=== PATIENT | female | born 2000 ===

== ENCOUNTER 2021-05-13 05:45 | Emergency (ER) | payer OTHER ==
--- OUTSIDE RECORDS SUMMARY | 2021-05-13 05:50 | XMS REPORT | Continuity of Care Document ---
:2000 Author Organization [facility] t Address [address] [place] [address] Care Team Providers Name Role Phone Pcp, Does Not Have A Primary Care Physician Beryl Hsu Attending Clinician Unavailable Criss Dave Attending Clinician Unavailable Brenda ELLIS Attending Clinician Giancarlo Admitting Clinician Unavailable Beryl Hsu Admitting Clinician Unavailable Payers Payer Name Policy Type Policy Number Effective Date Expiration Date S ource Problems Condition Condition Condition Status Onset Resolution Last Treating Co mments Source Name Details Category Date Date Treatment Clinician Date Gross Gross Disease Active 2019-04 [facility] hematuria hematuria 0-07 ity of 00:00: [place] 00 Medical Branch UTI UTI Disease Active 2019-04 [facility] (urinary (urinary 0-07 ity of tract tract 00:00: [place] infection) infection) 00 Vt dical Branch Allergies, Adverse Reactions, Alerts Allergy Allergy Status Severity Reaction(s) Onset Inactive Treating Comm ents Source Name Type Date Date Clinician keshavatrip DA Active MO 2019-04 [facility] 1-13 Clear 00:00: [place] 00 [facility] DA Active MO LOCK JAW 2019- [facility] 1-13 Clear 00:00: [place] 00 [facility] No Known DA Active U 2020-0 [facility] All[facility] 8-29 Clear s 00:00: [place] 00 [facility] sumatrip DA Active U 2020-0 [facility] 8- Clear 00:00: [place] 00 [facility] No Known DA Active U 2020-0 [facility] Allergie 8-29 Clear s 00:00: [place] 00 [facility] DA Active U LOCKS JAW 2019- [facility] 8- Clear 00:00: [place] 00 [facility] Propensi Active Unknown - 2018-04 Jaw Uni vers [facility] ty to See comments 2 locked ity of adverse 00:00: [place] reaction 00 Medical s Branch No Known DA Active U [facility] Allergie 4- Clear s 00:00: [place] 00 [facility] No Known DA Active U 2014- [facility] Allergie 3-04 Clear s 00:00: [place] 00 [facility] Social History Social Habit Start Date Stop Date Quantity Comments Source Exposure to Not sure [facility] SARS-CoV-2 [place] Medical (event) Branch Alcohol intake 2020-07-07 2020-07-07 Current [facility] 00:00:00 00:00:00 non-drinker of [facility] alcohol Branch (finding) Sex Assigned At [birth year] Universit y of 00:00:00 00:00:00 [facility] Smoking Status Start Date Stop Date Source Never smoker [facility] Medical Branch Medications Ordered Filled Start Stop Current Ordering Indication Dosage Frequency Signature Comments Components Source Medication Medication Date Date Medication? Clinician (SIG) Name Name Yes 1{tbl} Take 1 Unive rs 25/iron 1-18 tablet by ity of fum/folic/d 10:48: mouth [place] her 05 daily. Medical (-1 Branch ORAL) acetaminoph 2019-04 Yes 325mg Take 325 U nivers en 0-08 mg by ity of (TYLENOL) 12:49: mouth [place] 325 mg 29 every 6 Medical tablet (six) Branch hours as needed. magnesium Yes [id number] 400mg Take 1 Univers oxide 400 8-10 capsule by ity of mg 00:00: mouth [place] magnesium 00 daily. Medical capsule Branch acetaminoph 2021- No 2{capsu Take 2 Univers en-caff-but 10-22 le} capsules ity of albital 00:00: 00:00 by mouth Avinash (ESGIC) per 00 :00 every 8 Medic al capsule (eight) Branch hours as needed (migraines ). Immunizations Ordered Immunization Filled Immunization Date Status Commen ts Source Name Name SARS-COV-2 COVID-19 2020-12-25 Completed Unive rsity of PFIZER VACCINE 00:00:00 [facility] Branch SARS-COV-2 COVID-19 2020-12-03 Completed Unive rsity of PFIZER VACCINE 00:00:00 [facility] Branch TDAP 2020-01-18 Completed University of 00:00:00 [facility] Influenza Virus 2019-03-20 Completed Universit y of Vaccine Quad .5 mL IM 00:00:00 Jovany as Medical 6+ [place] Branch TDAP (ADACEL) VACCINE 2011-11-04 Completed Uni versity of 00:00:00 [facility] Meningococcal 2011-11-04 Completed University of Polysaccharide 00:00:00 [facility] (groups A, C, Y and Branc h W-135) conjugate vaccine (MCV4P) Vital Signs Vital Name Observation Time Observation Value Comments Source Systolic blood 2021-05-06 16:47:00 125 mm[Hg] Univer sity of pressure [facility] Diastolic blood 2021-05-06 16:47:00 80 mm[Hg] Unive rsity of pressure [facility] Heart rate 2021-05-06 16:47:00 72 /min [facility] Body temperature 2021-05-06 16:47:00 36.94 Loli [facility] Respiratory rate 2021-05-06 16:47:00 18 /min [facility] Body height 2021-05-06 16:47:00 162.6 cm [facility] Body weight 2021-05-06 16:47:00 74.889 kg [facility] BMI 2021-05-06 16:47:00 28.34 kg/m2 [facility] Procedures Procedure Date / Time Performed Performing Clinician Kirstin ahuja [id number] 2020-03-10 00:00:00 LEBJO [facility] [id number] 2020-03-10 00:00:00 BELLA [facility] Encounters Start End Encounter Admission Attending Care Care Encounter Source Date/Time Date/Time Type Type Clinicians Facility Department ID 2020-03-09 Inpatient Amor [facility] [id number] [facility] 13:42:00 Lul, [id number] [facility] 2020-03-01 Inpatient Tenzin, [facility] JOHN [id number] [facility] 14:55:00 Gia [id number] [facility] 2019-12-16 Inpatient Amor [facility] JOHN [id number] [facility] 21:36:00 Lul [id number] [facility] 2021-05-06 2021-05-06 [facility] [id number] Univers 10:30:00 11:07:13 Visit Tonya WHITTAKER [id number] it y of WOMEN'S [id number] [facility] [id number] [facility] 134 Branch Results Test Description Test Time Test Comments Results Result Comments Source CBC W/AUTO DIFF 2020-03-11 05:23:00 Test Item Value Reference Range Interpretation Comme nts WHITE BLOOD CELL (test code = WBC) 15.5 x10 3/uL 4.5-11.0 H RED BLOOD CELL (test code = RBC) 3.55 x10 6/uL 3.54-5.02 N HEMOGLOBIN (test code = HGB) 10.7 g/dL 11.0-15.0 L HEMATOCRIT (test code = HCT) 32.2 % 33.0-45.0 L MEAN CELL VOLUME (test code = MCV) 90.7 fL 81.0-99.0 N MEAN CELL HGB (test code = MCH) 30.1 pg 27.0-33.0 N MEAN CELL HGB CONCETRATION (test code = MCHC) 33.2 g/dL 33.0-37. 0 N RED CELL DISTRIBUTION WIDTH CV (test code = RDW) 12.5 % 11.5- 14.5 N RED CELL DISTRIBUTION WIDTH SD (test code = RDW-SD) 41.1 fL 37 .0-54.0 N PLATELET COUNT (test code = PLT) 268 x10 3/uL 150-400 N MEAN PLATELET VOLUME (test code = MPV) 10.6 fL 7.0-9.0 H NEUTROPHIL % (test code = NT%) 72.0 % 56.0-77.0 N IMMATURE GRANULOCYTE % (test code = IG%) 0.8 % 0.0-2.0 N LYMPHOCYTE % (test code = LY%) 15.5 % 14.0-32.0 N MONOCYTE % (test code = MO%) 11.1 % 4.8-9.0 H EOSINOPHIL % (test code = EO%) 0.3 % 0.3-3.7 N BASOPHIL % (test code = BA%) 0.3 % 0.0-2.0 N NUCLEATED RBC % (test code = NRBC%) 0.0 % 0-0 N NEUTROPHIL # (test code = NT#) 11.14 x10 3/uL 2.0-7.6 H IMMATURE GRANULOCYTE # (test code = IG#) 0.13 x10 3/uL 0.00-0.03 H LYMPHOCYTE # (test code = LY#) 2.40 x10 3/uL 1.0-3.8 N MONOCYTE # (test code = MO#) 1.71 x10 3/uL 0.1-0.8 H EOSINOPHIL # (test code = EO#) 0.04 x10 3/uL 0.0-0.2 N BASOPHIL # (test code = BA#) 0.04 x10 3/uL 0.0-0.2 N NUCLEATED RBC # (test code = NRBC#) 0.00 x10 3/uL 0.0-0.1 N MANUAL DIFF REQUIRED (test code = MDIFF) NO CBC W/AUTO [id number] 05:22:00 Test Item Value Reference Range Interpretation Comments WHITE BLOOD CELL (test code = x10 3/uL 4.5-11.0 WBC) RED BLOOD CELL (test code = RBC) x10 6/uL 3.54-5.02 HEMOGLOBIN (test code = HGB) g/dL 11.0-15.0 HEMATOCRIT (test code = HCT) % 33.0-45.0 MEAN CELL VOLUME (test code = fL 81.0-99.0 MCV) MEAN CELL HGB (test code = MCH) pg 27.0-33.0 MEAN CELL HGB CONCETRATION (test g/dL 33.0-37.0 code = MCHC) RED CELL DISTRIBUTION WIDTH CV % 11.5-14.5 (test code = RDW) PLATELET COUNT (test code = PLT) 268 x10 3/uL 150-400 N NEUTROPHIL % (test code = NT%) % 56.0-77.0 LYMPHOCYTE % (test code = LY%) % 14.0-32.0 NEUTROPHIL # (test code = NT#) x10 3/uL 2.0-7.6 LYMPHOCYTE # (test code = LY#) x10 3/uL 1.0-3.8 MANUAL DIFF REQUIRED (test code = MDIFF) RAPID PLASMA [id number] 10:22:00 Test Item Value Reference Range Interpretation Comments RAPID PLASMA REAGIN (test code = NONREACTIVE NONREACTIVE RPR) AG HEPATITIS B [id number] 10:22:00 Test Item Value Reference Range Interpretation Comments AG HEPATITIS B SURFACE NON REACTIVE INDEX NonReactive (test code = HBSAG) AB HIV 1 10:22:00 Test Item Value Reference Range Interpretation Comments AB HIV 1 2 (test code = NONREACTIVE INDEX NONREACTIVE [id number]) CORD VENOUS BLOOD [id number] 05:45:00 Test Item Value Reference Range Interpretation Comments CORD VENOUS PH (test code = PHCV) 7.30 7.25-7.45 N CORD VENOUS PCO2 (test code = 38 mmHg 27-49 N PCO2CV) CORD VENOUS PO2 (test code = 22 mmHg 17-41 N PO2CV) CORD VENOUS HCO3 (test code = 19.0 MMOL/L 12-28 N HCO3CV) CORD VENOUS BASE EXCESS (test -7.0 mmol/L -8.0-0.00 N code = BEXCV) CORD VENOUS 02 SAT (test code = 34 % O2SCV) CORD ARTERIAL BLOOD [id number] 05:44:00 Test Item Value Reference Range Interpretation Comments CORD BLOOD PH (test code = PH/C) 7.22 7.18-7.38 N CORD BLOOD PCO2 (test code = 51 mmHg 32-66 N PCO2/C) CORD BLOOD PO2 (test code = 16 mmHg 6-30 N PO2/C) CORD BLOOD HCO3 (test code = 21 mmol/L 17-27 N HCO3/C) BASE EXCESS CORD (test code = -7.0 mmol/L -8.0-0.0 N HAKAN/C) O2 SATURATION (test code = O2S/C) 16 % 72-77 L - US [id number] 03:57:00 [facility] 2000 Sex: F Name: TIFFANIE MILLS [facility] : 2000 Age/S: 19 / F [address] [place] [address] Blvd Unit #: [id number] Loc:[place] [address] Phys: Nancy John MD Acct: [id number] Dis Date: Status: ADM IN PHONE #: [phone] Exam Date: 03/09/2020611 FAX #: [phone] Reason: BEDSIDE MICHELLE Report Has Been Amended EXAMS: CPT CODE: [id number] US PREGNANCYLTD [id number] Addendum - 03/10/2020 SIGNED 03/10/2020 ADDENDUM: [id number] US/USPREGLTD Addendum: Addendum is made only to have crossed the report to the PACS. No change in the report. EXAM: US, US LTD: 03/09/2020, 2253 hours HISTORY: Labile. Bedside MICHELLE COMPARISON: None TECHNIQUE: Transabdominal sonographic evaluation isperformed using grayscale, color flow and Doppler imaging when appropriate. FINDINGS: The examination shows a single fetus in cephalic presentation. Normal cardiac activity is noted at 122 per second. The amount of amniotic fluid is subjectivelynormal. Amniotic fluid index is 13.16 cm with largest pocket measuring 4.58. Gestational age by LMP is 34 weeks 6 days Cervical length is not visualized. If indicated, follow-up ultrasound can be performed for complete assessment. IMPRESSION: Single live fetus in cephalic presentation. QAMAR: KATE PAGE 1 Signed Report (CONTINUED) Name: TIFFANIE MILLS : 2000 Age/S: / [address] [place] [address] Unit #: [id number] Loc: [place] [address] Phys: Nancy John MD Acct: [id number] Dis Date: Status: ADM IN PHONE #: [phone] Exam Date: 03/09/2020 0612 FAX #: [phone] Reason: BEDSIDE MICHELLE Report Has Been Amended EXAMS: CPT CODE: [id number] Seculert LTD 47786 <Continued> at 0357 Reported and signed by: Giancarlo Jo M.D. Report EXAM: , Fix That Bug LTD: 03/09/2020, 2253 hours HISTORY: Labile. Bedside MICHELLE COMPARISON: None TECHNIQUE: Transabdominal sonographic evaluation is performed using grayscale, color flow andDoppler imaging when appropriate. FINDINGS: The examination shows a single fetus in cephalic presentation. Normal cardiac activity is noted at 122 per second. The amount of amniotic fluid is subjectively normal. Amniotic fluid index is 13.16 cm with largest pocket measuring 4.58. Gestational age by LMP is 34 weeks 6 days Cervical length is not visualized. If indicated, follow-up ultrasound can be performed for complete assessment. IMPRESSION: Single live fetusin cephalic presentation. SL: KATE PAGE 2 Signed Report (CONTINUED) Name: TIFFANIE MILLS : 2000 Age/S: / [address] [place] [address] Unit #: [id number] Loc: [place] [address] Phys: Nancy John Acct: [id number] Dis Date: Status: ADM IN PHONE #: [phone] Exam Date: 03/09/2020 0612 FAX #: [phone] Reason: BEDSIDE MICHELLE Report Has Been Amended EXAMS: CPT CODE: [id number] US LTD 83340 <Continued> at 2317 Reported and signed by: Giancarlo Jo M.D. CC: Jeniffer Mondragon MD; Nancy John Technologist: Leslie Krueger RDMS(BR)(AB) Trnscb Date/Time: 03/09/2020 (2316) [email or web address] Orig Print D/T: S: 03/10/2020 (06) Probe: PAGE 3 Signed Report- US LTD 2020-03-10 03:57:00 [facility] 2000 Sex: F Name: TIFFANIE MILLS [facility] : 2000 Age/S: 19 / F [address] [place] [address] Unit #: [id number] Loc:[place] [address] Phys: Nancy John MD Acct: [id number] Dis Date: Status: ADM IN PHONE #: [phone] Exam Date: 03/09/2020611 FAX #: [phone] Reason: BEDSIDE MICHELLE Report Has Been Amended EXAMS: CPT CODE: [id number] US PREGNANCYLTD 61804 Addendum - 03/10/2020 SIGNED 03/10/2020 ADDENDUM: [id number] US/USPREGLTD Addendum: Addendum is made only to have crossed the report to the PACS. No change in the report. EXAM: US, US LTD: 03/09/2020, 2253 hours HISTORY: Labile. Bedside MICHELLE COMPARISON: None TECHNIQUE: Transabdominal sonographic evaluation isperformed using grayscale, color flow and Doppler imaging when appropriate. FINDINGS: The examination shows a single fetus in cephalic presentation. Normal cardiac activity is noted at 122 per second. The amount of amniotic fluid is subjectivelynormal. Amniotic fluid index is 13.16 cm with largest pocket measuring 4.58. Gestational age by LMP is 34 weeks 6 days Cervical length is not visualized. If indicated, follow-up ultrasound can be performed for complete assessment. IMPRESSION: Single live fetus in cephalic presentation. SL: KATE PAGE 1 Signed Report (CONTINUED) Name: TIFFANIE MILLS : 2000 Age/S: [address] [place] [address] Unit #: [id number] Loc: [place] [address] Phys: Nancy John MD Acct: [id number] Dis Date: Status: ADM IN PHONE #: [phone] Exam Date: 03/09/2020611 FAX #: [phone] Reason: BEDSIDE MICHELLE Report Has Been Amended EXAMS: CPT CODE: [id number] US LTD 37777 <Continued> at 0357 Reported and signed by: Giancarlo Jo M.D. Report EXAM: , LTD: 03/09/2020, 2253 hours HISTORY: Labile. Bedside MICHELLE COMPARISON: None TECHNIQUE: Transabdominal sonographic evaluation is performed using grayscale, color flow andDoppler imaging when appropriate. FINDINGS: The examination shows a single fetus in cephalic presentation. Normal cardiac activity is noted at 122 per second. The amount of amniotic fluid is subjectively normal. Amniotic fluid index is 13.16 cm with largest pocket measuring 4.58. Gestational age by LMP is 34 weeks 6 days Cervical length is not visualized. If indicated, follow-up ultrasound can be performed for complete assessment. IMPRESSION: Single live fetusin cephalic presentation. SL: KATE PAGE 2 Signed Report (CONTINUED) Name: TIFFANIE MILLS : 2000 Age/S: [address] [place] [address] Unit #: [id number] Loc: [place] [address] Phys: Nancy JohnMD Acct: [id number] Dis Date: Status: ADM IN PHONE #: [phone] Exam Date: 03/09/2020611 FAX #: [phone] Reason: BEDSIDE MICHELLE Report Has Been Amended EXAMS: CPT CODE: [id number] LTD 39515 <Continued> at 2317 Reported and signed by: Giancarlo Jo M.D. 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 [facility] RAPID PLASMA [id number] 16:49:00 Test Item Value Reference Range Interpretation Comments RAPID PLASMA REAGIN (test code = RPR) NONREACTIVE AG HEPATITIS B [id number] 16:49:00 Test Item Value Reference Range Interpretation Comments AG HEPATITIS B SURFACE NON REACTIVE INDEX NonReactive (test code = HBSAG) AB HIV 1 16:49:00 Test Item Value Reference Range Interpretation Comments AB HIV 1 2 (test code = NONREACTIVE INDEX NONREACTIVE [id number]) COVID 19 Asymptomatic IH [id number] 15:36:00 Test Item Value Reference Range Interpretation Comments COVID 19 Asymptomatic Negative Negative A nega tive result is IH AG (test code = presumpti ve and should COVNONPUIAG) be confirmedwit h an FDA authorized mole cular assay, if neces marino forpatient avani gement.A positive result does not rule out co-inf ections withother patho gens.This test detects winifred th viable (live) and non-viable,SARS -CoV, and SARS-CoV-2. Saúl t performance dep ends on theamount of vi amy (antigen) in th e sample.This saúl t has not been FDA cleare d or approved; the t est hasbeen authori zed by FDA under an Em ergency Use Authorizati on(EUA) for use by labo ratories certified under the CLIA thatmeet the requirements to perform moderate, high or waivedcomplexit y tests. COMMENTS: If not done [facility] W/AUTO [id number] 15:31:00 Test Item Value Reference Range Interpretation Comments WHITE BLOOD CELL (test code = 11.6 x10 3/uL 4.5-11.0 H WBC) RED BLOOD CELL (test code = 4.32 x10 6/uL 3.54-5.02 N RBC) HEMOGLOBIN (test code = HGB) 12.7 g/dL 11.0-15.0 N HEMATOCRIT (test code = HCT) 38.7 % 33.0-45.0 N MEAN CELL VOLUME (test code = 89.6 fL 81.0-99.0 N MCV) MEAN CELL HGB (test code = MCH) 29.4 pg 27.0-33.0 N MEAN CELL HGB CONCETRATION 32.8 g/dL 33.0-37.0 L (test code = MCHC) RED CELL DISTRIBUTION WIDTH CV 12.1 % 11.5-14.5 N (test code = RDW) RED CELL DISTRIBUTION WIDTH SD 39.6 fL 37.0-54.0 N (test code = RDW-SD) PLATELET COUNT (test code = 329 x10 3/uL 150-400 N PLT) MEAN PLATELET VOLUME (test code 11.2 fL 7.0-9.0 H = MPV) NEUTROPHIL % (test code = NT%) 70.2 % 56.0-77.0 N IMMATURE GRANULOCYTE % (test 0.4 % 0.0-2.0 N code = IG%) LYMPHOCYTE % (test code = LY%) 20.3 % 14.0-32.0 N MONOCYTE % (test code = MO%) 8.3 % 4.8-9.0 N EOSINOPHIL % (test code = EO%) 0.5 % 0.3-3.7 N BASOPHIL % (test code = BA%) 0.3 % 0.0-2.0 N NUCLEATED RBC % (test code = 0.0 % 0-0 N NRBC%) NEUTROPHIL # (test code = NT#) 8.13 x10 3/uL 2.0-7.6 H IMMATURE GRANULOCYTE # (test 0.05 x10 3/uL 0.00-0.03 H code = IG#) LYMPHOCYTE # (test code = LY#) 2.35 x10 3/uL 1.0-3.8 N MONOCYTE # (test code = MO#) 0.96 x10 3/uL 0.1-0.8 H EOSINOPHIL # (test code = EO#) 0.06 x10 3/uL 0.0-0.2 N BASOPHIL # (test code = BA#) 0.04 x10 3/uL 0.0-0.2 N NUCLEATED RBC # (test code = 0.00 x10 3/uL 0.0-0.1 N NRBC#) MANUAL DIFF REQUIRED (test code NO = MDIFF) CBC W/AUTO [id number] 15:27:00 Test Item Value Reference Range Interpretation Comments WHITE BLOOD CELL (test code = x10 3/uL 4.5-11.0 WBC) RED BLOOD CELL (test code = RBC) x10 6/uL 3.54-5.02 HEMOGLOBIN (test code = HGB) 12.7 g/dL 11.0-15.0 N HEMATOCRIT (test code = HCT) 38.7 % 33.0-45.0 N MEAN CELL VOLUME (test code = fL 81.0-99.0 MCV) MEAN CELL HGB (test code = MCH) pg 27.0-33.0 MEAN CELL HGB CONCETRATION (test g/dL 33.0-37.0 code = MCHC) RED CELL DISTRIBUTION WIDTH CV % 11.5-14.5 (test code = RDW) PLATELET COUNT (test code = PLT) 329 x10 3/uL 150-400 N NEUTROPHIL % (test code = NT%) % 56.0-77.0 LYMPHOCYTE % (test code = LY%) % 14.0-32.0 NEUTROPHIL # (test code = NT#) x10 3/uL 2.0-7.6 LYMPHOCYTE # (test code = LY#) x10 3/uL 1.0-3.8 MANUAL DIFF REQUIRED (test code = MDIFF) AMNISURE (ROM) [id number] 14:35:00 Test Item Value Reference Range Interpretation Comments AMNISURE (ROM) TEST (test POSITIVE NEGATIVE A OP ENED:02/04/2020 code = AMNI) [id number] 17:29:00 Test Item Value Reference Range Interpretation Comments FIBRONECTIN (test code = FFN) POSITIVE NEGATIVE A URINALYSIS [id number] 17:11:00 Test Item Value Reference Range Interpretation Comments UA COLOR (test code = COLU) YELLOW YEL/STRAW UA APPEARANCE (test code = SL CLOUDY CLEAR APPU) UA GLUCOSE DIPSTICK (test code NEGATIVE NEGATIVE = DGLUU) UA BILIRUBIN DIPSTICK (test NEGATIVE NEGATIVE code = BILU) UA KETONE DIPSTICK (test code = 2+ NEGATIVE A KETU) UA SPECIFIC GRAVITY (test code 1.021 1.005-1.030 N = SGU) UA BLOOD DIPSTICK (test code = NEGATIVE NEGATIVE KRZYSZTOF) UA PH DIPSTICK (test code = 5.0 5.0-7.0 N EZENAT) UA PROTEIN DIPSTICK (test code NEGATIVE NEGATIVE = PROU) UA UROBILINIOGEN DIPSTICK (test 0.2 mg/dL 0.2-1.0 code = URO) UA NITRITE DIPSTICK (test code NEGATIVE NEGATIVE = JON) UA LEUKOCYTE ESTERASE DIPSTICK TRACE NEGATIVE A (test code = LEUU) UA RBC (test code = RBCU) 21-50 RBC/HPF 0-3 UA WBC NO REFLEX (test code = 10-20 WBC/HPF 0-3 A WBCUCL) UA BACTERIA (test code = BACU) TRACE /HPF NONE SEEN UA SQUAMOUS CELLS (test code = 11-25 /HPF NONE SEEN A SQU) UA MUCUS (test code = MUCU) 2+ /LPF NONE SEEN A BASIC METABOLIC [id number] 00:38:00 Test Item Value Reference Range Interpretation Comments SODIUM (test code = NA) 140 mEq/L 134-147 N POTASSIUM (test code = 3.9 mEq/L 3.4-5.0 N K) CHLORIDE (test code = 110 mEq/L 100-108 H CL) CARBON DIOXIDE (test 24 mEq/L 21-33 N code = CO2) ANION GAP (test code = 10 0-20 N GAP) GLUCOSE (test code = 83 mg/dL 70-110 N GLU) BLOOD UREA NITROGEN 13 mg/dL 7-18 N (test code = BUN) GLOMERULAR FILTRATION 107.8 110-120 L Units of measure = RATE (test code = GFR) ml/mi n/1.73 m2 CREATININE (test code = 0.7 mg/dL 0.6-1.3 N CREAT) CALCIUM (test code = 8.4 mg/dL 8.0-10.5 N CA) Is patient ? YHOW MANY WEEKS? 8 WEEKSHCG [id number] 00:38:00 Test Item Value Reference Range Interpretation Comments HCG SERUM (test 2044 0 - 6 code = HCG) NOT > 6 SUG GESTIVE OF EARLY RISES TWO FOLD EVERY 2 DAYS; KINSEY GGEST RECONFIRMING AF TER 2 DAYS. 150,000-20 0,[address] TRIMESTER 10,000 - 50,000 2ND & 3RD TRIMESTERResult s in bacilio-Internati onal Units/mL Is patient ? YHOW MANY WEEKS? 8 WEEKSBASIC METABOLIC [id number] 00:21:00 Test Item Value Reference Range Interpretation Comments SODIUM (test code = NA) 140 mEq/L 134-147 N POTASSIUM (test code = 3.9 mEq/L 3.4-5.0 N K) CHLORIDE (test code = 110 mEq/L 100-108 H CL) CARBON DIOXIDE (test 24 mEq/L 21-33 N code = CO2) ANION GAP (test code = 10 0-20 N GAP) GLUCOSE (test code = 83 mg/dL 70-110 N GLU) BLOOD UREA NITROGEN 13 mg/dL 7-18 N (test code = BUN) GLOMERULAR FILTRATION 107.8 110-120 L Units of measure = RATE (test code = GFR) ml/mi n/1.73 m2 CREATININE (test code = 0.7 mg/dL 0.6-1.3 N CREAT) CALCIUM (test code = 8.4 mg/dL 8.0-10.5 N CA) Is patient ? YHOW MANY WEEKS? 8 WEEKSHCG [id number] 00:21:00 Test Item Value Reference Range Interpretation Comments HCG SERUM (test code = HCG) Is patient ? YHOW MANY WEEKS? 8 WEEKSURINALYSIS [id number] 00:11:00 Test Item Value Reference Range Interpretation Comments UA COLOR (test code = COLU) YELLOW YEL/STRAW UA APPEARANCE (test code = SL CLOUDY CLEAR APPU) UA GLUCOSE DIPSTICK (test code NEGATIVE NEGATIVE = DGLUU) UA BILIRUBIN DIPSTICK (test NEGATIVE NEGATIVE code = BILU) UA KETONE DIPSTICK (test code NEGATIVE NEGATIVE = KETU) UA SPECIFIC GRAVITY (test code 1.015 1.005-1.030 N = SGU) UA BLOOD DIPSTICK (test code = 3+ NEGATIVE A KRZYSZTOF) UA PH DIPSTICK (test code = 5.0 5.0-7.0 N ZEENAT) UA PROTEIN DIPSTICK (test code NEGATIVE NEGATIVE = PROU) UA UROBILINIOGEN DIPSTICK 0.2 mg/dL 0.2-1.0 (test code = URO) UA NITRITE DIPSTICK (test code NEGATIVE NEGATIVE = JON) UA LEUKOCYTE ESTERASE DIPSTICK NEGATIVE NEGATIVE (test code = LEUU) UA WBC (test code = WBCU) 0-3 WBC/HPF 0-3 UA RBC (test code = RBCU) >50 RBC/HPF 0-3 A UA BACTERIA (test code = BACU) NONE SEEN /HPF NONE SEEN UA SQUAMOUS CELLS (test code = 0-5 /HPF NONE SEEN SQU) UA MUCUS (test code = MUCU) TRACE /LPF NONE SEEN CBC W/AUTO [id number] 00:10:00 Test Item Value Reference Range Interpretation Comments WHITE BLOOD CELL (test code = 9.23 x10 3/uL 4.5-11.0 N WBC) RED BLOOD CELL (test code = 4.48 x10 6/uL 3.54-5.02 N RBC) HEMOGLOBIN (test code = HGB) 13.2 g/dL 11.0-15.0 N HEMATOCRIT (test code = HCT) 38.8 % 33.0-45.0 N MEAN CELL VOLUME (test code = 86.6 fL 81.0-99.0 N MCV) MEAN CELL HGB (test code = MCH) 29.5 pg 27.0-33.0 N MEAN CELL HGB CONCETRATION 34.0 g/dL 33.0-37.0 N (test code = MCHC) RED CELL DISTRIBUTION WIDTH CV 12.1 % 11.5-14.5 N (test code = RDW) RED CELL DISTRIBUTION WIDTH SD 39.1 fL 37.0-54.0 N (test code = RDW-SD) PLATELET COUNT (test code = 314 x10 3/uL 150-400 N PLT) MEAN PLATELET VOLUME (test code 10.2 fL 7.0-9.0 H = MPV) NEUTROPHIL % (test code = NT%) 52.9 % 56.0-77.0 L IMMATURE GRANULOCYTE % (test 0.2 % 0.0-2.0 N code = IG%) LYMPHOCYTE % (test code = LY%) 33.7 % 14.0-32.0 H MONOCYTE % (test code = MO%) 11.3 % 4.8-9.0 H EOSINOPHIL % (test code = EO%) 1.5 % 0.3-3.7 N BASOPHIL % (test code = BA%) 0.4 % 0.0-2.0 N NUCLEATED RBC % (test code = 0.0 % 0-0 N NRBC%) NEUTROPHIL # (test code = NT#) 4.88 x10 3/uL 2.0-7.6 N IMMATURE GRANULOCYTE # (test 0.02 x10 3/uL 0.00-0.03 N code = IG#) LYMPHOCYTE # (test code = LY#) 3.11 x10 3/uL 1.0-3.8 N MONOCYTE # (test code = MO#) 1.04 x10 3/uL 0.1-0.8 H EOSINOPHIL # (test code = EO#) 0.14 x10 3/uL 0.0-0.2 N BASOPHIL # (test code = BA#) 0.04 x10 3/uL 0.0-0.2 N NUCLEATED RBC # (test code = 0.00 x10 3/uL 0.0-0.1 N NRBC#) MANUAL DIFF REQUIRED (test code NO = MDIFF) CHEMISTRY 8 [id number] 23:57:00 Test Item Value Reference Range Interpretation Comments ISTAT-SODIUM (test code = NAP) MMOL/L 134-147 ISTAT-POTASSIUM (test code = KP) MMOL/L 3.4-5.0 ISTAT-CHLORIDE (test code = CLP) MMOL/L 100-108 ISTAT CARBON DIOXIDE (test code = mmol/L 21-33 N ISTAT-CO2) ISTAT CALCIUM IONIZED (test code = MG/DL 1.12-1.32 ISTAT-ZINA) ISTAT-GLUCOSE (test code = GLUP) MG/DL 70-110 N ISTAT-BUN (test code = BUNP) MG/DL 7-18 N BEDSIDE CREATININE (test code = MG/DL 0.6-1.3 N CREATBED) GLOMERULAR FILTRATION RATE POC 137 ML/MIN (test code = GFRBED) CHEMISTRY 8 [id number] 23:57:00 Test Item Value Reference Range Interpretation Comments ISTAT-SODIUM (test 142 MMOL/L 134-147 N code = NAP) ISTAT-POTASSIUM (test 3.9 MMOL/L 3.4-5.0 N code = KP) ISTAT-CHLORIDE (test 104 MMOL/L 100-108 N Perform ed by code = CLP) certified opera tor at [facility] ISTAT CARBON DIOXIDE 25.0 mmol/L 21-33 N (test code = ISTAT-CO2) ISTAT CALCIUM IONIZED 1.19 MG/DL 1.12-1.32 N (test code = ISTAT-ZINA) ISTAT-GLUCOSE (test 86 MG/DL 70-110 N code = GLUP) ISTAT-BUN (test code = 12 MG/DL 7-18 N BUNP) BEDSIDE CREATININE 0.6 MG/DL 0.6-1.3 N (test code = CREATBED) GLOMERULAR FILTRATION 137 ML/MIN RATE POC (test code = GFRBED) - US PREG UT [id number] 23:15:00 Name: TIFFANIE MILLS [facility] : 2000 Age/S: 17 / F [address] [place] [address] Unit #: [id number] Loc: [id number] Phys: Liang Monreal NP Acct: [id number] Dis Date: Status: REG ER PHONE #: [phone] Exam Date: 07/19/2018 2303 FAX #: [phone] Reason: SPOTTING EXAMS: CPTCODE: [id number] US PREG UT TRANSVAGINAL 23139 Procedure: Pelvic Ultrasound. Clinical Indication: , vaginal spotting, pelvic cramping. Comparison: None. PROCEDURE: PELVIC ULTRASOUND TRANSABDOMINAL SCAN: The uterus measures 7.4 x 3.8 x 4.9 cm. The visualized bladder and adnexa are maintained. TRANSVAGINAL SCAN: An endovaginal ultrasound was performed to try to better visualize the endometrial stripe and adnexal regions. There is a low-lying gestational sac within the endometrial cavity. There is an intrauterine with crown-rump length equaling 3mm consistent with a gestational age of 5 weeks 6 days however no cardiac activityis identified. A small subchorionic hemorrhage is noted posteriorly. The right ovary measures 2.6 x 2.4 x 2.7 cm and demonstrates small follicles and blood flow. The left ovary was not seen. IMPRESSION: 1. Findings consistent with early 5 week 6 day intrauterine , the viability of which cannot be stated for certainty at this time and short-term imaging follow-up is recommended, if indicated clinically. 2. Small posterior subchorionic hemorrhage. 3. Nonvisualization of the left ovary SL: K56-H at 2315 Reported and signed by: Avinash Bettencourt M.D. CC: Liang Monreal NP Technologist: Tayla Ledezma RDMS(Beryl)(OB) Trnscb Date/Time: 07/19/2018 (2314) tJESENIATDOOrig Print D/T: S: 07/19/2018 (2316) Probe: [id number] PAGE 1 Signed Report- US PREG 1ST [id number] 23:15:00 Name: TIFFANIE MILLS [facility] : 2000 Age/S: 17 / F [address] [place] [address] Unit #: [id number] Loc: [id number] Phys: Liang Monreal NP Acct: [id number] Dis Date: Status: REG ER PHONE #: [phone] Exam Date: 07/19/20182302 FAX #: [phone] Reason: , LMP 2/4, vaginal bleeding, IUP on US on S EXAMS: CPTCODE: [id number] US PREG 1ST TRIMTR 19301 Procedure: Pelvic Ultrasound. Clinical Indication: , vaginal spotting, pelvic cramping. Comparison: None. PROCEDURE: PELVIC ULTRASOUND TRANSABDOMINAL SCAN: The uterus measures 7.4 x 3.8 x 4.9 cm. The visualized bladder and adnexa are maintained. TRANSVAGINAL SCAN: An endovaginal ultrasound was performed to try to better visualize the endometrial stripe and adnexal regions. There is a low-lying gestational sac within the endometrial cavity. There is an intrauterine with crown-rump length equaling 3mm consistent with a gestational age of 5 weeks 6 days however no cardiac activityis identified. A small subchorionic hemorrhage is noted posteriorly. The right ovary measures 2.6 x 2.4 x 2.7 cm and demonstrates small follicles and blood flow. The left ovary was not seen. IMPRESSION: 1. Findings consistent with early 5 week 6 day intrauterine , the viability of which cannot be stated for certainty at this time and short-term imaging follow-up is recommended, if indicated clinically. 2. Small posterior subchorionic hemorrhage. 3. Nonvisualization of the left ovary SL: K56-H at 2315 Reported and signed by: Avinash Bettencourt M.D. CC: Liang Monreal NP Technologist: Tayla Ledezma RDMS(Beryl)(OB) Trnscb Date/Time: 07/19/2018 (8977) JasminTDOOrig Print D/T: S: 07/19/2018 (8963) Probe: PAGE 1 Signed Report
[2021-05-13] MEDS ORDERED: IBUPROFEN 200 MG TAB PO ONE (06:09)
[2021-05-13] MEDS ORDERED: IBUPROFEN 400 MG TAB ONE (06:09)
[2021-05-13] MEDS ORDERED: AZITHROMYCIN 250 MG TAB ONE (06:23)
[2021-05-13 07:36] LABS: SARS-COV-2 RT PCR POSITIVE (NEGATIVE)
--- NOTE | 2021-05-13 07:42 | ER ---
Nurse's Notes [facility] Name: Indira Quach Age: 20 yrs Sex: Female : 2000 Arrival Date: 05/13/2021 Time: 05:49 Bed 19 Private MD: Diagnosis: SARS-associated coronavirus as the cause of diseases classified elsewhere Presentation: 05/13 05:53 Chief complaint: Patient states: "I feel extremely hot and I feel like someone is tw5 pumping air into my head. It started off as a sore throat. Last night I was shivering and now I just feel so hot.:. Coronavirus screen: Vaccine status: Patient reports receiving the 2nd dose of the covid vaccine. Logly. Ebola Screen: Patient negative for fever greater than or equal to 101.5 degrees Fahrenheit, and additional compatible Ebola Virus Disease symptoms Patient denies exposure to infectious person. Patient denies travel to an Ebola-affected area in the 21 days before illness onset. Initial Sepsis Screen: Does the patient meet any 2 criteria? No. Patient's initial sepsis screen is negative. Does the patient have a suspected source of infection? No. Patient's initial sepsis screen is negative. Risk Assessment: Do you want to hurt yourself or someone else? Patient reports no desire to harm self or others. Onset of symptoms was May 12, 2021. 05:53 Method Of Arrival: Ambulatory tw5 05:53 Acuity: RADHA 3 tw5 Triage Assessment: 05:54 General: Appears in no apparent distress. Behavior is calm, cooperative, appropriate tw5 for age. Pain: Complains of pain in " Throat and head" Pain currently is 5 out of 10 on a pain scale. EENT: Throat with gag reflex present. 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 - Social history:: Smoking status: Patient denies any tobacco usage or history of. - Family history:: not pertinent. Screenin:26 Abuse screen: Denies threats or abuse. Denies injuries from another. Nutritional as6 screening: No deficits noted. Tuberculosis screening: No symptoms or risk factors identified. Fall Risk None identified. Assessment: 06:24 General: Appears in no apparent distress. Behavior is calm, cooperative. General: as6 Reports chills for fever for feeling ill for fatigue for. Pain: Complains of pain in throat and headache. Neuro: Level of Consciousness is awake, alert, obeys commands, Oriented to person, place, time, situation, Reports headache. Cardiovascular: Capillary refill < 3 seconds Patient's skin is warm and dry. Respiratory: Airway is patent Trachea midline Respiratory effort is even, unlabored, Respiratory pattern is regular, symmetrical. EENT: Reports sore throat . 07:04 General: Appears in no apparent distress. comfortable, Behavior is calm, cooperative, jd3 appropriate for age. Pain: Complains of pain in head and throat Quality of pain is described as aching. Neuro: Level of Consciousness is awake, alert, obeys commands, Oriented to person, place, time, situation. Cardiovascular: Capillary refill < 3 seconds Patient's skin is warm and dry. Respiratory: Airway is patent Respiratory effort is even, unlabored, Respiratory pattern is regular, symmetrical. Derm: Skin is intact, Skin is dry, Skin is normal, Skin temperature is warm. 07:51 Reassessment: Patient appears in no apparent distress at this time. No changes from jd3 previously documented assessment. Patient and/or family updated on plan of care and expected duration. Pain level reassessed. Patient is alert, oriented x 3, equal unlabored respirations, skin warm/dry/pink. Vital Signs: 05:53 BP 130 / 66; Pulse 98; Resp 18; Temp 98.5(O); Pulse Ox 99% on R/A; Weight 74.84 kg; tw5 Height 5 ft. 3 in. (160.02 cm); Pain 5/10; 06:27 BP 127 / 90; Pulse 95; Resp 18 S; Pulse Ox 100% on R/A; as6 07:08 BP 109 / 64; Pulse 85; Resp 18 S; Pulse Ox 98% on R/A; jd3 05:53 Body Mass Index 29.23 (74.84 kg, 160.02 cm) tw5 ED Course: 05:49 Patient arrived in ED. 05:50 Antione Mosquera MD is Attending Physician. [facility] 05:54 Triage completed. tw5 05:54 Arm band placed on right wrist. tw 05:58 Estrada Magana, [place] is Primary Nurse. as6 06:26 Placed in gown. Bed in low position. Call light in reach. Side rails up X 1. Pulse ox as6 on. NIBP on. Warm blanket given. PO fluids given. 06:26 COVID-19/FLU A+B/RSV (Document "Date of Onset" if Symptomatic) Sent. as6 06:26 Strep Sent. as6 06:59 Antione Vines PA is PHCP. cp 07:04 Primary Nurse role handed off by Estrada Magana, [place] carey 07:04 Dima France, [place] is Primary Nurse. jd3 07:50 No provider procedures requiring assistance completed. Patient did not have IV access jd3 during this emergency room visit. Administered Medications: 06:18 Drug: Motrin (ibuprofen) 600 mg Route: PO; as6 06:26 Follow up: Response: No adverse reaction as6 06:24 Drug: Zithromax (azithromycin) 500 mg Route: PO; as6 06:26 Follow up: Response: No adverse reaction as6 Outcome: 07:41 Discharge ordered by . cp 07:50 Discharged to home ambulatory. jd3 07:50 Condition: stable 07:50 Discharge instructions given to patient, Instructed on discharge instructions, follow up and referral plans. medication usage, Demonstrated understanding of instructions, follow-up care, medications, Prescriptions given X 3. 07:51 Patient left the ED. jd3 Signatures: Antione Mosquera MD MD cha Page, Corey, PA PA cp Davies, Jonathon, RN RN jRadha Matias Tiffany Estrada Magana RN RN as6 Corrections: (The following items were deleted from the chart) 05:55 05:54 Allergies: No Known Allergies; 05:58 05:53 Acuity: RADHA 4
--- NOTE | 2021-05-13 07:42 | EDPHYS ---
Physician Documentation [facility] Name: Indira Quach Age: 20 yrs Sex: Female : 2000 Arrival Date: 05/13/2021 Time: 05:49 Bed 19 Private MD: FAVIO Physician Antione Mosquera HPI: 05/13 06:12 This 20 yrs old Female presents to ER via Ambulatory with complaints of Sore pam Throat, Fever, Palpitations. 06:12 The patient presents with sore throat. The patient describes throat pain as burning. pam Onset: The symptoms/episode began/occurred 2 day(s) ago. Severity of symptoms: At their worst the symptoms were moderate. Modifying factors: The symptoms are alleviated by nothing, the symptoms are aggravated by nothing. Associated signs and symptoms: The patient has no apparent associated signs or symptoms. The patient has not experienced similar symptoms in the past. 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 - Social history:: Smoking status: Patient denies any tobacco usage or history of. - Family history:: not pertinent. ROS: 06:12 Eyes: Negative for injury, pain, redness, and discharge, Neck: Negative for injury, pam pain, and swelling, Cardiovascular: Negative for chest pain, palpitations, and edema, Respiratory: Negative for shortness of breath, cough, wheezing, and pleuritic chest pain, Abdomen/GI: Negative for abdominal pain, nausea, vomiting, diarrhea, and constipation, Back: Negative for injury and pain, : Negative for injury, bleeding, discharge, and swelling, MS/Extremity: Negative for injury and deformity, Skin: Negative for injury, rash, and discoloration, Neuro: Negative for headache, weakness, numbness, tingling, and seizure, Psych: Negative for depression, anxiety, suicide ideation, homicidal ideation, and hallucinations, Allergy/Immunology: Negative for hives, rash, and allergies, Endocrine: Negative for neck swelling, polydipsia, polyuria, polyphagia, and marked weight changes, Hematologic/Lymphatic: Negative for swollen nodes, abnormal bleeding, and unusual bruising. 06:12 Constitutional: Positive for fever. 06:12 ENT: Positive for difficulty swallowing, rhinorrhea. 06:12 Cardiovascular: Positive for chest pain, palpitations. Exam: 06:14 Constitutional: This is a well developed, well nourished patient who is awake, alert, pam and in no acute distress. Head/Face: Normocephalic, atraumatic. Eyes: Pupils equal round and reactive to light, extra-ocular motions intact. Lids and lashes normal. Conjunctiva and sclera are non-icteric and not injected. Cornea within normal limits. Periorbital areas with no swelling, redness, or edema. Neck: Trachea midline, no thyromegaly or masses palpated, and no cervical lymphadenopathy. Supple, full range of motion without nuchal rigidity, or vertebral point tenderness. No Meningismus. Chest/axilla: Normal chest wall appearance and motion. Nontender with no deformity. No lesions are appreciated. Cardiovascular: Regular rate and rhythm with a normal S1 and S2. No gallops, murmurs, or rubs. Normal PMI, no JVD. No pulse deficits. Respiratory: Lungs have equal breath sounds bilaterally, clear to auscultation and percussion. No rales, rhonchi or wheezes noted. No increased work of breathing, no retractions or nasal flaring. Abdomen/GI: Soft, non-tender, with normal bowel sounds. No distension or tympany. No guarding or rebound. No evidence of tenderness throughout. Back: No spinal tenderness. No costovertebral tenderness. Full range of motion. Skin: Warm, dry with normal turgor. Normal color with no rashes, no lesions, and no evidence of cellulitis. MS/ Extremity: Pulses equal, no cyanosis. Neurovascular intact. Full, normal range of motion. Neuro: Awake and alert, GCS 15, oriented to person, place, time, and situation. Cranial nerves II-XII grossly intact. Motor strength 5/5 in all extremities. Sensory grossly intact. Cerebellar exam normal. Normal gait. Psych: Awake, alert, with orientation to person, place and time. Behavior, mood, and affect are within normal limits. 06:14 ENT: Mouth: is normal, no acute changes, Posterior pharynx: Tonsils: are normal in appearance, Uvula: normal, erythema, that is mild, that is moderate. 06:21 ECG was reviewed by the Attending Physician. [facility] Vital Signs: 05:53 BP 130 / 66; Pulse 98; Resp 18; Temp 98.5(O); Pulse Ox 99% on R/A; Weight 74.84 kg; tw5 Height 5 ft. 3 in. (160.02 cm); Pain 5/10; 06:27 BP 127 / 90; Pulse 95; Resp 18 S; Pulse Ox 100% on R/A; as6 07:08 BP 109 / 64; Pulse 85; Resp 18 S; Pulse Ox 98% on R/A; jd3 05:53 Body Mass Index 29.23 (74.84 kg, 160.02 cm) tw5 MDM: 05:56 Patient medically screened. [facility] 06:17 Differential diagnosis: group A strep tonsillitis, influenza, mononucleosis, pam pharyngitis, upper respiratory infection. Data reviewed: vital signs, nurses notes, lab test result(s), Flu:. Data interpreted: electronic device monitor: rate is 98 beats/min, rhythm is regular, Pulse oximetry: on room air is 99 %. Test interpretation: by ED physician or midlevel provider:. Counseling: I had a detailed discussion with the patient and/or guardian regarding: the historical points, exam findings, and any diagnostic results supporting the discharge/admit diagnosis, lab results, radiology results, the need for outpatient follow up, for definitive care, 05/13 05:51 Order name: COVID-19/FLU A+B/RSV (Document "Date of Onset" if Symptomatic); Complete [facility] Time: 07:38 05/13 07:38 Interpretation: Reviewed. cp 05/13 05:51 Order name: Strep; Complete Time: 06:56 [facility] 05/13 05:51 Order name: EKG; Complete Time: 05:52 [facility] 05/13 06:51 Order name: Throat Culture EDWA 05/13 05:51 Order name: EKG - Nurse/Tech; Complete Time: 06:18 [facility] EC:21 Rate is 103 beats/min. Rhythm is regular. QRS [place] is Normal. MS interval is normal. pam QRS interval is normal. QT interval is normal. No Q waves. T waves are Normal. No ST changes noted. Clinical impression: Sinus tachycardia. Interpreted by me. Reviewed by me. Administered Medications: 06:18 Drug: Motrin (ibuprofen) 600 mg Route: PO; 06:26 Follow up: Response: No adverse reaction as6 06:24 Drug: Zithromax (azithromycin) 500 mg Route: PO; as 06:26 Follow up: Response: No adverse reaction as6 Disposition Summary: 05/13/21 07:41 Discharge Ordered Location: Home cp Problem: new cp Symptoms: have improved cp Condition: Stable cp Diagnosis - SARS-associated coronavirus as the cause of diseases classified elsewhere cp Followup: pam - With: Private Physician - When: 2 - 3 days - Reason: Recheck today's complaints, Continuance of care, Re-evaluation by your physician Discharge Instructions: - Discharge Summary Sheet pam - Fever, Adult pam - Cool Mist Vaporizer pam - Cough, Adult [facility] - Aspirin and Your Heart cp - COVID-19 cp - Things to Know about the COVID-19 Pandemic - [facility] [place] cp - 10 Things You Can Do to Manage Your COVID-19 Symptoms at Home - [facility] [place] 2[place] cp - COVID-19: Quarantine vs. Isolation - [facility] [place] 2] cp - Prevent the Spread of COVID-19 if You Are Sick - [facility] [place] 2] cp Forms: - Medication Reconciliation Form cp - Thank You Letter cp - Antibiotic Education cp - Prescription Opioid Use cp Prescriptions: - Tessalon Perles 100 mg Oral Capsule - take 1 capsule by ORAL route every 8 hours As needed; 15 capsule; Refills: 0, cp Product Selection Permitted - Pepcid 20 mg Oral Tablet - take 1 tablet by ORAL route every 12 hours for 5 days; 10 tablet; Refills: 0, cp Product Selection Permitted - Zithromax Z-Kenny 250 mg Oral Tablet - take 1 tablet by ORAL route as directed for 5 days Day 1 - take two (2) tablets cp one time. Day 2, 3, 4 , 5 take one (1) tablet once daily.; 6 tablet; Refills: 0, Product Selection Permitted Signatures: Dispatcher [employer] EDMS Antione Mosquera MD MD cha Page, Corey, PA PA cp Wood, Tiffany tw5 Estrada Magana RN RN as6 Corrections: (The following items were deleted from the chart) 05:55 05:54 Allergies: No Known Allergies; tw
[2021-05-13 07:57] VITALS: TEMP 98.5
[2021-05-13 08:00] VITALS: BP 109/64; O2SAT 98
--- NOTE | 2021-05-13 08:22 | EKG ---
Test Date: 2021-05-13 Test Time: 06:15:26 Pt Sitter: MEASUREMENT RESULTS: Intervals: Rate: 103 WI: 162 QRSD: 78 QT: 326 QTc: 427 [place]: P: 16 WI: 162 QRS: 59 T: 44 INTERPRETIVE STATEMENTS: Sinus tachycardia Otherwise normal ECG No previous ECG available for comparison Electronically Signed On 05-13-21 08:22:12 CELL PREPARER by Curt García
== END 2021-05-13 07:51 | disposition home or self-care (01) ==
LOC: ER 05:45
DX: U07.1 COVID-19 (principal)
CPT/HCPCS: 93005; 87070; 87081; 0241U

== ENCOUNTER 2021-06-27 20:42 | Emergency (ER) | payer OTHER, SELFPAY ==
--- OUTSIDE RECORDS SUMMARY | 2021-06-27 20:46 | XMS REPORT | Continuity of Care Document ---
:2000 Author Organization [facility] t Address [address] [place] [address] Care Team Providers Name Role Phone Pcp, [...] (urinary 0-07 ity of tract tract 00:00: [place] infection) infection) 00 Me dical Branch Allergies, Adverse Reactions, Alerts Allergy Allergy Status Severity Reaction(s) Onset Inactive Treating Comm ents Source Name Type Date Date Clinician mary lou CORTES Active [place] 2019-04 [facility] -13 Clear 00:00: [place] 00 [facility] DA Active MO LOCK JAW 2019- [facility] 1-13 Clear 00:00: [place] 00 [facility] No Known DA Active U 2020-0 [facility] Allergie 8-29 Clear s 00:00: [place] 00 [facility] sumatrip DA Active U 2020-0 [facility] 8- Clear 00:00: [place] 00 [facility] No Known DA Active U 2020-0 [facility] Allergie 8-29 Clear s 00:00: [place] 00 [facility] sumatr DA Active U LOCKS JAW 2019- [facility] 8-29 Clear 00:00: [place] 00 [facility] Prop[facility] Active Unknown - 2018-04 Jaw Uni vers [facility] ty to See comments 2 locked ity of adverse 00:00: [place] reaction 00 Medical s Branch No Known DA Active U [facility] Allergie 4- Clear s 00:00: [place] 00 [facility] No Known DA Active U 2014- [facility] Allergie 3-04 Clear s 00:00: [place] 00 [facility] Social History Social Habit Start Date Stop Date Quantity Comments Source Exposure to Not sure [facility] SARS-CoV-2 [place] [facility] (event) Branch Alcohol intake 2020-07-07 2020-07-07 Current [facility] 00:00:00 00:00:00 non-drinker of [facility] alcohol Branch (finding) Sex Assigned At [birth year] [facility] 00:00:00 00:00:00 [facility] Smoking Status Start Date Stop Date Source Never smoker [facility] Medical Branch Medications Ordered Filled Start [...] (six) Branch hours as needed. magnesium Yes [id number] 400mg Take 1 Univers oxide 400 8-10 [...] Completed Unive rsity of PFIZER VACCINE 00:00:00 [facility] Branch SARS-COV-2 COVID-19 2020-12-03 Completed Unive rsity of PFIZER VACCINE 00:00:00 [facility] Branch TDAP 2020-01-18 Completed University of 00:00:00 [facility] Influenza Virus 2019-03-20 Completed Universit y of Vaccine Quad .5 mL IM 00:00:00 Jovany as Medical 6+ MO Branch TDAP (ADACEL) VACCINE 2011-11-04 Completed Uni versity of 00:00:00 [facility] Meningococcal 2011-11-04 Completed University of Polysaccharide 00:00:00 [facility] (groups A, C, Y and Branc h W-135) conjugate vaccine (MCV4P) Vital Signs Vital Name Observation Time Observation Value Comments Source Systolic blood 2021-05-06 16:47:00 125 mm[Hg] Univer sity of pressure [facility] Diastolic blood 2021-05-06 16:47:00 80 mm[Hg] Unive rsity of pressure [facility] Heart rate 2021-05-06 16:47:00 72 /min [facility] Body temperature 2021-05-06 16:47:00 36.94 Loli [facility] Respiratory rate 2021-05-06 16:47:00 18 /min [facility] Body height 2021-05-06 16:47:00 162.6 cm [facility] Body weight 2021-05-06 16:47:00 74.889 kg [facility] BMI 2021-05-06 16:47:00 28.34 kg/m2 [facility] Procedures Procedure Date / Time Performed Performing Clinician Kirstin ahuja [id number] 2020-03-10 00:00:00 LEBJO [facility] [id number] 2020-03-10 00:00:00 LUISABJOLENE [facility] Encounters Start End Encounter Admission Attending Care Care Encounter Source Date/Time Date/Time Type Type Clinicians Facility Department ID 2020-03-09 Inpatient Amor [facility] JOHN [id number] [facility] 13:42:00 Lul [id number] [facility] 2020-03-01 Inpatient Tenzin, [facility] JOHN [id number] [facility] 14:55:00 Gia [id number] [facility] 2019-12-16 Inpatient Amor [facility] JOHN [id number] [facility] 21:36:00 Lul [id number] [facility] 2021-05-06 2021-05-[address] [facility] [id number] Univers 10:30:00 11:07:13 Visit Tonya WHITTAKER [id number] it y of WOMEN'S [id number] [facility] [id number] [facility] 134 Branch Results Test Description Test Time [...] (test code = MDIFF) NO CBC W/AUTO [id number] 05:22:00 Test Item Value Reference Range Interpretation [...] REQUIRED (test code = MDIFF) RAPID PLASMA [id number] 10:22:00 Test Item Value Reference Range Interpretation Comments RAPID PLASMA REAGIN (test code = NONREACTIVE NONREACTIVE RPR) AG HEPATITIS B [id number] 10:22:00 Test Item Value Reference Range Interpretation Comments AG HEPATITIS B SURFACE NON REACTIVE INDEX NonReactive (test code = HBSAG) AB HIV 1 10:22:00 Test Item Value Reference Range Interpretation Comments AB HIV 1 2 (test code = NONREACTIVE INDEX NONREACTIVE IHR13KY) CORD VENOUS BLOOD [id number] 05:45:00 Test Item Value Reference Range Interpretation [...] = 34 % O2SCV) CORD ARTERIAL BLOOD [id number] 05:44:00 Test Item Value Reference Range Interpretation [...] O2S/C) 16 % 72-77 L - US [id number] 03:57:00 [facility] 2000 Sex: F Name: TIFFANIE MILLS [facility] : 2000 Age/S: 19 / F [address] [place] [address] Blvd Unit #: [id number] Loc:[place] [address] Phys: Nancy John MD Acct: [id number] Dis Date: Status: ADM IN PHONE #: [phone] Exam Date: 03/09/2020611 FAX #: [phone] Reason: BEDSIDE MICHELLE Report Has Been Amended EXAMS: CPT CODE: [id number] US PREGNANCYLTD 29930 Addendum - 03/10/2020 SIGNED 03/10/2020 ADDENDUM: [id number] US/USPREGLTD Addendum: Addendum is made only to [...] (CONTINUED) Name: TIFFANIE MILLS : 2000 Age/S: 19 / [address] [place] [address] Unit #: [id number] Loc: [place] [address] Phys: Nancy John MD Acct: [id number] Dis Date: Status: ADM IN PHONE #: [phone] Exam Date: 03/09/2020 0612 FAX #: [phone] Reason: BEDSIDE MICHELLE Report Has Been Amended EXAMS: CPT CODE: [id number] [employer] [address]10 <Continued> at 0357 Reported and signed by: Giancarlo Jo M.D. Report EXAM: , [employer]: 03/09/2020, 2253 hours HISTORY: Labile. Bedside [...] Name: TIFFANIE MILLS : 2000 Age/S: / [address] [place] [address] Unit #: [id number] Loc: [place] [address] Phys: Nancy John Acct: [id number] Dis Date: Status: ADM IN PHONE #: [phone] Exam Date: 03/09/2020 0612 FAX #: [phone] Reason: BEDSIDE MICHELLE Report Has Been Amended EXAMS: CPT CODE: [id number] [place] LTD 03401 <Continued> at 2317 Reported and signed by: Giancarlo Jo M.D. CC: Jeniffer Mondragon MD; Nancy John Technologist: Leslie Krueger RDMS(BR)(AB) Trnscb Date/Time: 03/09/2020 (2316) [email or web address] Orig Print D/T: S: 03/10/2020 (06) Probe: PAGE 3 Signed Report- US LTD 2020-03-10 03:57:00 [facility] : 2000 Sex: F Name: TIFFANIE MILLS [facility] [place] : 2000 Age/S: 19 / F [address] [place] [address] Unit #: [id number] Loc:[place] [address] Phys: Nancy John MD Acct: [id number] Dis Date: Status: ADM IN PHONE #: [phone] Exam Date: 03/09/2020611 FAX #: [phone] Reason: BEDSIDE MICHELLE Report Has Been Amended EXAMS: CPT CODE: [id number] US PREGNANCYLTD 51889 Addendum - 03/10/2020 SIGNED 03/10/2020 ADDENDUM: [id number] US/USPREGLTD Addendum: Addendum is made only to [...] KATE PAGE 1 Signed Report (CONTINUED) Name: TFIFANIE MILLS : 2000 Age/S: [address] [place] [address] Unit #: [id number] Loc: [place] [address] Phys: Nancy John MD Acct: [id number] Dis Date: Status: ADM IN PHONE #: [phone] Exam Date: 03/09/2020611 FAX #: [phone] Reason: BEDSIDE MICHELLE Report Has Been Amended EXAMS: CPT CODE: [id number] [place] L[place] 13506 <Continued> at 0357 Reported and signed by: [...] (CONTINUED) Name: TIFFANIE MILLS : 2000 Age/S: [address] [place] [address] Unit #: [id number] Loc: [place] [address] Phys: Nancy JohnSC Acct: [id number] Dis Date: Status: ADM IN PHONE #: [phone] Exam Date: 03/09/2020611 FAX #: [phone] Reason: BEDSIDE MICHELLE Report Has Been Amended EXAMS: CPT CODE: [id number] LTD 73752 <Continued> at 2317 Reported and signed by: Giancarlo Jo M.D. 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 COMMENTS: [facility] not [facility] [id number] 15:31:00 Test Item Value Reference Range Interpretation [...] (test code NO = MDIFF) CBC W/AUTO [id number] 15:27:00 Test Item Value Reference Range Interpretation [...] REQUIRED (test code = MDIFF) AMNISURE (ROM) [id number] 14:35:00 Test Item Value Reference Range Interpretation Comments AMNISURE (ROM) TEST (test POSITIVE NEGATIVE A OP ENED:02/04/2020 code = AMNI) [id number] 17:29:00 Test Item Value Reference Range Interpretation Comments FIBRONECTIN (test code = FFN) POSITIVE NEGATIVE A URINALYSIS [id number] 17:11:00 Test Item Value Reference Range Interpretation [...] 2+ /LPF NONE SEEN A BASIC METABOLIC [id number] 00:38:00 Test Item Value Reference Range Interpretation [...] patient ? YHOW MANY WEEKS? 8 WEEKSHCG [id number] 00:38:00 Test Item Value Reference Range Interpretation [...] ? YHOW MANY WEEKS? 8 WEEKSBASIC METABOLIC [id number] 00:21:00 Test Item Value Reference Range Interpretation [...] patient ? YHOW MANY WEEKS? 8 WEEKSHCG [id number] 00:21:00 Test Item Value Reference Range Interpretation Comments HCG SERUM (test code = HCG) Is patient ? YHOW MANY WEEKS? 8 WEEKSURINALYSIS [id number] 00:11:00 Test Item Value Reference Range Interpretation [...] MUCU) TRACE /LPF NONE SEEN CBC W/AUTO [id number] 00:10:00 Test Item Value Reference Range Interpretation [...] (test code NO = MDIFF) CHEMISTRY 8 [id number] 23:57:00 Test Item Value Reference Range Interpretation [...] ML/MIN (test code = GFRBED) CHEMISTRY 8 [id number] 23:57:00 Test Item Value Reference Range Interpretation Comments ISTAT-SODIUM (test 142 MMOL/L 134-147 N code = NAP) ISTAT-POTASSIUM (test 3.9 MMOL/L 3.4-5.0 N code = KP) ISTAT-CHLORIDE (test 104 MMOL/L 100-108 N Perform ed by code = CLP) certified opera tor at [facility] ISTAT CARBON DIOXIDE 25.0 mmol/L 21-33 N [...] code = GFRBED) - US PREG UT [id number] 23:15:00 Name: TIFFANIE MILLS [facility] : 2000 Age/S: 17 / F [address] [place] [address] Unit #: [id number] Loc: [place] [id number] Phys: Liang Monreal NP Acct: [id number] Dis Date: Status: REG ER PHONE #: [phone] Exam Date: 07/19/2018 2303 FAX #: [phone] Reason: SPOTTING EXAMS: CPTCODE: [id number] US PREG UT TRANSVAGINAL 80312 Procedure: Pelvic Ultrasound. Clinical Indication: , vaginal [...] Tayla Ledezma RDMS(Beryl)(OB) Trnscb Date/Time: 07/19/2018 (2314) JasminTDOOrig Print D/T: S: 07/19/2018 (2314) Probe: [id number] PAGE 1 Signed Report- US PREG 1ST [id number] 23:15:00 Name: TIFFANIE MILLS [facility] : 2000 Age/S: 17 / F [address] [place] [address] Unit #: [id number] Loc: Bj [id number] Phys: Liang Monreal NP Acct: [id number] Dis Date: Status: REG ER PHONE #: [phone] Exam Date: 07/19/20182302 FAX #: [phone] Reason: , LMP 2/4, vaginal bleeding, IUP on US on S EXAMS: CPTCODE: [id number] US PREG 1ST TRIMTR 26282 Procedure: Pelvic Ultrasound. Clinical Indication: , vaginal [...] Technologist: Tayla Ledezma RDMS(Beryl)(OB) Trnscb Date/Time: 07/19/2018 (3918) JasminTDOOrig Print D/T: S: 07/19/2018 (8961) Probe: PAGE 1 Signed Report
[2021-06-27] MEDS ORDERED: ONDANSETRON 4 MG/2 ML VIAL ONE (21:30)
[2021-06-27] MEDS ORDERED: NA CHLORIDE 0.9% 1,000 ML ONE ×2 (21:31→22:30)
[2021-06-27 22:09] LABS: Absolute Lymphocytes (CBC) 0.5 K/uL (0.7-4.9); Hematocrit 43.9 % (36.0-45.0); Lymphocytes % 6.3 % (15.3-44.8); MPV 8.8 fL (7.6-11.3); RBC Red Blood Cell Count 4.99 M/uL (3.86-4.86)
[2021-06-27 22:11] LABS: Urine Blood 3+ (Negative); Urine Glucose Negative (Negative); Urine Protein 2+ (Negative); Urine Specific Gravity >=1.030 (1.005-1.030)
[2021-06-27 22:17] LABS: Urine Specific Gravity/Preg >1.030 (1.005-1.030)
[2021-06-27 22:25] LABS: Albumin 4.2 g/dL (3.4-5.0); Bilirubin Direct 0.2 mg/dL (0-0.2); Bilirubin Total 1.3 mg/dL (0.2-1.0); Potassium 3.4 mmol/L (3.5-5.1); Protein, Total 9.2 g/dL (6.4-8.2)
[2021-06-27] MEDS ORDERED: MEPERIDINE HCL 25 MG/ML SYR ONE (22:29)
[2021-06-27] MEDS ORDERED: PROMETHAZINE INJ 25 MG/ML AMP ONE (22:44)
[2021-06-27 22:46] LABS: SARS-COV-2 RT PCR NEGATIVE (NEGATIVE)
--- NOTE | 2021-06-28 00:11 | ER ---
Nurse's Notes [facility] Name: Indira Quach Age: 20 yrs Sex: Female : 2000 Arrival Date: 06/27/2021 Time: 20:45 Bed 17 Private MD: Diagnosis: Nausea with vomiting, unspecified;Diarrhea, unspecified;Dehydration Presentation: 06/27 21:01 Chief complaint: Patient states: Patient has had vomiting, nausea, chills, dizsziness, st1 chiils and difficulty breathing since yesterday. Coronavirus screen: Vaccine status: Patient reports receiving the 2nd dose of the covid vaccine. Pfizer. Ebola Screen: No symptoms or risks identified at this time. Initial Sepsis Screen: Does the patient meet any 2 criteria? No. Patient's initial sepsis screen is negative. Does the patient have a suspected source of infection? No. Patient's initial sepsis screen is negative. Risk Assessment: Do you want to hurt yourself or someone else? Patient reports no desire to harm self or others. Onset of symptoms was June 26, 2021. 21:01 Method Of Arrival: Ambulatory st1 21:01 Acuity: RADHA 3 st1 Triage Assessment: 21:04 General: Appears distressed, uncomfortable, slender, well groomed, Behavior is calm, st1 cooperative. Pain: Complains of pain in Chest, Ribs and Stomach Pain does not radiate. Pain radiates to Back and lower abdomen. GI: Reports lower abdominal pain, upper abdominal pain, cramping, diarrhea, epigastric pain, intolerance of fluids, intolerance of food, nausea, vomiting. 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 - Social history:: Smoking status: Patient denies any tobacco usage or history of. Patient/guardian denies using alcohol, street drugs, tobacco products. - Family history:: not pertinent. - Hospitalizations: : No recent hospitalization is reported. Screenin:08 Abuse screen: Denies threats or abuse. Nutritional screening: No deficits noted. st1 Tuberculosis screening: No symptoms or risk factors identified. Fall Risk None identified. No fall in past 12 months (0 pts). No secondary diagnosis (0 pts). No IV (0 pts). Ambulatory Aid- None/Bed Rest/Nurse Assist (0 pts). Gait- Normal/Bed Rest/Wheelchair (0 pts) Mental Status- Oriented to own ability (0 pts). Total Hammond Fall Scale indicates No Risk (0-24 pts). Assessment: 21:30 General: Appears in no apparent distress. uncomfortable, ill, Behavior is calm, vc1 cooperative, appropriate for age. 21:30 Pain: Complains of pain in chest and abdomen Pain does not radiate. Pain currently is 7 vc1 out of 10 on a pain scale. Neuro: Level of Consciousness is awake, alert, obeys commands, Oriented to person, place, time, situation, Appropriate for age. Cardiovascular: Reports chest pain, nausea, vomiting. Respiratory: Airway is patent Respiratory effort is even, unlabored, Respiratory pattern is regular, symmetrical. GI: Abdomen is flat, Abd is soft Abdomen is tender to palpation X 4 quads. Reports lower abdominal pain, upper abdominal pain, cramping, diarrhea, epigastric pain, intolerance of fluids, intolerance of food, nausea, vomiting. 22:00 Reassessment: No changes from previously documented assessment. Patient and/or family vc1 updated on plan of care and expected duration. Pain level reassessed. 23:47 Reassessment: Patient and/or family updated on plan of care and expected duration. Pain vc1 level reassessed. Patient is alert, oriented x 3, equal unlabored respirations, skin warm/dry/pink. Patient states feeling better. Patient states symptoms have improved. Vital Signs: 21:07 BP 124 / 90; Pulse 119; Resp 20; Temp 98.2; Pulse Ox 100% on R/A; Weight 72.57 kg; st1 Height 5 ft. 3 in. (160.02 cm); Pain 9/10; 21:45 BP 126 / 81; Pulse 88; Resp 18; Pulse Ox 100% on R/A; vc1 22:30 BP 122 / 67; Pulse 89; Resp 16; Pulse Ox 100% on R/A; vc1 22:47 BP 111 / 88; Pulse 99; Resp 18; Pulse Ox 100% on R/A; vc1 23:00 BP 105 / 63; Pulse 95; Resp 18; Pulse Ox 100% on R/A; vc1 21:07 Body Mass Index 28.34 (72.57 kg, 160.02 cm) st1 ED Course: 20:45 Patient arrived in ED. jj6 21:04 Triage completed. st1 21:07 Arm band placed on left wrist. st1 21:09 Patient has correct armband on for positive identification. st1 21:13 David eRd MD is Attending Physician. rn 21:26 Talita Venegas RN is Primary Nurse. vc1 21:35 COVID-19/FLU A+B (Document "Date of Onset" if Symptomatic) Sent. vc1 22:04 Basic Metabolic Panel Sent. vc1 22:04 CBC with Diff Sent. vc1 22:04 Hepatic Function Sent. vc1 22:04 Lipase Sent. vc1 22:05 Basic Metabolic Panel Sent. vc1 22:05 CBC with Automated Diff Sent. vc1 22:05 Liver (Hepatic) Function Sent. vc1 22:05 Lipase Sent. vc1 23:39 No provider procedures requiring assistance completed. vc1 03 00:33 IV discontinued, intact, bleeding controlled, No redness/swelling at site. Pressure vc1 dressing applied. Administered Medications: 06/27 21:35 Drug: NS 0.9% 1000 ml Route: IV; Rate: 1000 ml; Site: right antecubital; vc1 22:37 Follow up: IV Status: Completed infusion; IV Intake: 1000ml vc1 21:35 Drug: Zofran (Ondansetron) 4 mg Route: IVP; Site: right antecubital; vc1 22:00 Follow up: Response: No adverse reaction; Marked relief of symptoms; Nausea is vc1 decreased; Vomiting decreased 22:37 Drug: NS 0.9% 1000 ml Route: IV; Rate: 1000 ml; Site: right antecubital; vc1 03 00:00 Follow up: IV Status: Completed infusion; IV Intake: 1000ml vc1 06/27 22:37 Drug: Demerol (meperidine) 12.5 mg Route: IVP; Site: right antecubital; vc1 22:47 Follow up: BP 111 / 88; Pulse 99 bpm; Resp 18 bpm; Pulse Ox 100% RA; Response: Pain is vc1 decreased; Nausea is increased 22:47 Drug: Phenergan (promethazine) 12.5 mg Route: IVP; Site: right antecubital; vc1 22:48 Follow up: Response: No adverse reaction; Marked relief of symptoms; Nausea is decreasedvc1 Intake: 22:37 IV: 1000ml; Total: 1000ml. vc1 03 00:00 IV: 1000ml; Total: 2000ml. vc1 Outcome: 00:11 Discharge ordered by . rn 00:33 Discharged to home ambulatory, with significant other. vc1 00:33 Condition: good 00:33 Discharge instructions given to patient, Instructed on discharge instructions, follow up and referral plans. medication usage, Demonstrated understanding of instructions, follow-up care, medications, Prescriptions given X 1. 00:33 Patient left the ED. vc1 Signatures: David Red MD MD rn Jeffries, Jennifer jj6 Eneida San RN RN st1 Talita Venegas RN RN vc1 Corrections: (The following items were deleted from the chart) 06/27 23:47 23:34 General: Appears vc1 vc1
--- NOTE | 2021-06-28 00:11 | EDPHYS ---
Physician Documentation [facility] Name: Indira Quach Age: 20 yrs Sex: Female : 2000 Arrival Date: 06/27/2021 Time: 20:45 Bed 17 Private MD: ED Physician David Red HPI: 06/28 00:06 This 20 yrs old Female presents to ER via Ambulatory with complaints of rn Nausea/Vomiting/Diarrhea. 00:06 The patient presents to the emergency department with nausea, vomiting, diarrhea. rn Onset: The symptoms/episode began/occurred yesterday. Possible causes: unknown. The symptoms are aggravated by nothing. The symptoms are alleviated by nothing. Associated signs and symptoms: Pertinent positives: diarrhea, nausea, vomiting, Pertinent negatives: abdominal pain, fever, GI bleeding. Severity of symptoms: At their worst the symptoms were moderate in the emergency department the symptoms are unchanged. The patient has not experienced similar symptoms in the past. The patient has not recently seen a physician. Pt reports nausea/vomiting/diarrhea, began yesterday, no fever, thinks ate something bad a began just after eating chicken fried steak at [employer]. No blood in emesis or stool. Reports abd cramping but feels sore and all over from vomiting.. 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 - Social history:: Smoking status: Patient denies any tobacco usage or history of. Patient/guardian denies using alcohol, street drugs, tobacco products. - Family history:: not pertinent. - Hospitalizations: : No recent hospitalization is reported. ROS: 06/28 00:06 Constitutional: Negative for fever, chills, and weight loss, Eyes: Negative for injury, rn pain, redness, and discharge, Neck: Negative for injury, pain, and swelling, Cardiovascular: Negative for chest pain, palpitations, and edema, Respiratory: Negative for shortness of breath, cough, wheezing, and pleuritic chest pain, Abdomen/GI: Negative for abdominal pain, and constipation, Back: Negative for injury and pain, : Negative for injury, bleeding, discharge, and swelling, MS/Extremity: Negative for injury and deformity, Skin: Negative for injury, rash, and discoloration, Neuro: Negative for headache, weakness, numbness, tingling, and seizure. Exam: 00:06 Constitutional: This is a well developed, well nourished patient who is awake, alert, rn and in no acute distress. Head/Face: Normocephalic, atraumatic. Eyes: Pupils equal round and reactive to light, extra-ocular motions intact. Lids and lashes normal. Conjunctiva and sclera are non-icteric and not injected. Cornea within normal limits. Periorbital areas with no swelling, redness, or edema. ENT: dry MM Cardiovascular: tachycardic, regular. No pulse deficits. Respiratory: No increased work of breathing, no retractions or nasal flaring. Abdomen/GI: Soft, non-tender Back: No spinal tenderness. Skin: Warm, dry with normal turgor. Normal color with no rashes, no lesions, and no evidence of cellulitis. MS/ Extremity: Pulses equal, no cyanosis. Neurovascular intact. Full, normal range of motion. Equal circumference. Neuro: Awake and alert, GCS 15 Vital Signs: 06/27 21:07 BP 124 / 90; Pulse 119; Resp 20; Temp 98.2; Pulse Ox 100% on R/A; Weight 72.57 kg; st1 Height 5 ft. 3 in. (160.02 cm); Pain 9/10; 21:45 BP 126 / 81; Pulse 88; Resp 18; Pulse Ox 100% on R/A; vc1 22:30 BP 122 / 67; Pulse 89; Resp 16; Pulse Ox 100% on R/A; vc1 22:47 BP 111 / 88; Pulse 99; Resp 18; Pulse Ox 100% on R/A; vc1 23:00 BP 105 / 63; Pulse 95; Resp 18; Pulse Ox 100% on R/A; vc1 21:07 Body Mass Index 28.34 (72.57 kg, 160.02 cm) st1 MDM: 21:13 Patient medically screened. rn 06/28 00:06 Differential diagnosis: gastritis, pancreatitis, viral gastroenteritis, rn gastroenteritis. Data reviewed: vital signs, nurses notes, lab test result(s), and as a result, I will discharge patient. Counseling: I had a detailed discussion with the patient and/or guardian regarding: the historical points, exam findings, and any diagnostic results supporting the discharge/admit diagnosis, lab results, the need for outpatient follow up, to return to the emergency department if symptoms worsen or persist or if there are any questions or concerns that arise at home. Response to treatment: the patient's symptoms have markedly improved after treatment, and as a result, I will discharge patient. Special discussion: I discussed with the patient/guardian in detail that at this point there is no indication for admission to the hospital. It is understood, however, that if the symptoms persist or worsen the patient needs to return immediately for re-evaluation. ED course: Pt states feels much better, tolerating PO, well-hydrated, will dc home as either food poisoning or viral enteritis. WBC normal, stable and improving vitals. Repeat exam still doesn't reveal focal abd tenderness. Will dc home with prn zofran and return precautions.. 06/27 21:21 Order name: Basic Metabolic Panel 06/27 21:21 Order name: CBC with Diff 06/27 21:21 Order name: Hepatic Function 06/27 21:21 Order name: Lipase 06/27 21:21 Order name: COVID-19/FLU A+B (Document "Date of Onset" if Symptomatic); Complete Time: rn 23:52 06/27 21:21 Order name: Basic Metabolic Panel; Complete Time: 23:52 [facility] 06/27 21:21 Order name: CBC with Automated Diff; Complete Time: 22:23 [facility] 06/27 21:22 Order name: Liver (Hepatic) Function; Complete Time: 23:52 [facility] 06/27 21:22 Order name: Lipase; Complete Time: 23:52 [facility] 06/27 22:11 Order name: Urine Dipstick-Ancillary; Complete Time: 22:23 [facility] 06/27 22:12 Order name: Urine --Ancillary (enter results); Complete Time: 22:23 [facility] 06/27 21:21 Order name: IV Saline Lock; Complete Time: 21: 06/27 21:21 Order name: Labs collected and sent; Complete Time: : 06/27 21:21 Order name: Urine Dipstick-Ancillary (obtain specimen); Complete Time: 22:11 rn 06/27 21:21 Order name: Urine Test (obtain specimen); Complete Time: 22:11 rn Administered Medications: 06/27 21:35 Drug: NS 0.9% 1000 ml Route: IV; Rate: 1000 ml; Site: right antecubital; vc1 22:37 Follow up: IV Status: Completed infusion; IV Intake: 1000ml vc1 21:35 Drug: Zofran (Ondansetron) 4 mg Route: IVP; Site: right antecubital; vc1 22:00 Follow up: Response: No adverse reaction; Marked relief of symptoms; Nausea is vc1 decreased; Vomiting decreased 22:37 Drug: NS 0.9% 1000 ml Route: IV; Rate: 1000 ml; Site: right antecubital; vc1 06/28 00:00 Follow up: IV Status: Completed infusion; IV Intake: 1000ml vc1 06/27 22:37 Drug: Demerol (meperidine) 12.5 mg Route: IVP; Site: right antecubital; vc1 22:47 Follow up: BP 111 / 88; Pulse 99 bpm; Resp 18 bpm; Pulse Ox 100% RA; Response: Pain is vc1 decreased; Nausea is increased 22:47 Drug: Phenergan (promethazine) 12.5 mg Route: IVP; Site: right antecubital; vc1 22:48 Follow up: Response: No adverse reaction; Marked relief of symptoms; Nausea is decreasedvc1 Disposition Summary: 06/28/21 00:11 Discharge Ordered Location: Home rn Problem: new rn Symptoms: have improved rn Condition: Stable rn Diagnosis - Nausea with vomiting, unspecified rn - Diarrhea, unspecified rn - Dehydration rn Followup: rn - With: Private Physician - When: As needed - Reason: Recheck today's complaints, Re-evaluation by your physician Discharge Instructions: - Discharge Summary Sheet rn - Dehydration, Adult rn - Diarrhea, Adult rn - Nausea and Vomiting, Adult rn Forms: - Medication Reconciliation Form rn - Thank You Letter rn - Antibiotic 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 Head/Face: Normocephalic, atraumatic. Eyes: Pupils equal round and reactive to light, extra-ocular motions intact. Lids and lashes normal. Conjunctiva and sclera are non-icteric and not injected. Cornea within normal limits. Periorbital areas with no swelling, redness, or edema. ENT: dry MM Cardiovascular: tachycardic, regular. No pulse deficits. Respiratory: No increased work of breathing, no retractions or nasal flaring. Abdomen/GI: Soft, non-tender Back: No spinal tenderness. Skin: Warm, dry with normal turgor. Normal color with no rashes, no lesions, and no evidence of cellulitis. MS/ Extremity: Pulses equal, no cyanosis. Neurovascular intact. Full, normal range of motion. Equal circumference. Neuro: Awake and alert, GCS 15 rn
[2021-06-28 01:42] VITALS: TEMP 98.2; O2SAT 100
[2021-06-28 01:51] VITALS: BP 105/63
== END 2021-06-28 00:33 | disposition home or self-care (01) ==
LOC: ER 20:42
DX: E86.0 Dehydration (principal); R19.7 Diarrhea, unspecified; F41.9 Anxiety disorder, unspecified; Z88.8 Allergy status to other drugs, medicaments and biological substances; Z20.822 Contact with and (suspected) exposure to COVID-19
CPT/HCPCS: 96361; 85025; 80048; 36415; 81025; 80076; 81003; 83690; 0240U; 96375; 96374; 99283; J2550; J2175; J7030 ×2; J2405